=== PATIENT | male | born 1970 | race Caucasian/White ===

== ENCOUNTER 2020-03-19 21:56 | Emergency (ER) | payer OTHER ==
[~2020-03-19] VITALS: Ht 182.9 cm; Wt 104.3 kg
[2020-03-19 23:01] LABS: ABSOLUTE BASOPHILS 0.1 thou/uL (0.0-0.2); ABSOLUTE EOSINOPHILS 0.2 thou/uL (0.0-0.7); ABSOLUTE LYMPHOCYTES 0.9 thou/uL (0.8-5.3); ABSOLUTE MONOCYTES 0.8 thou/uL (0.0-1.2); ABSOLUTE NEUTROPHILS 4.6 thou/uL (1.6-8.1); BASOPHILS 1.2 %; EOSINOPHILS 2.5 %; HEMATOCRIT 44.4 % (42.0-52.0); HEMOGLOBIN 15.2 gm/dL (14.0-18.0); MCH 31.7 pg (26.0-34.0); MCHC 34.3 g/dL (28.0-37.0); MCV 92.3 fL (80.0-100.0); MONOCYTES 12.7 %; MPV 8.8 fl. (7.2-11.1); NUCLEATED RBCS 0 /100WBC; PLATELET COUNT* 256 thou/uL (150-400); POLYS 69.6 %; RBC 4.81 mil/uL (4.50-6.00); RDW-CV 13.5 % (10.5-14.5); WBC 6.6 thou/uL (4.0-11.0)
[2020-03-19 23:11] LABS: CALCIUM 8.4 mg/dL (8.5-10.1); CREATININE 1.3 mg/dL (0.6-1.3); POTASSIUM 3.6 mmol/L (3.5-5.1)
[2020-03-19 23:14] LABS: PROTIME 10.3 Seconds (9.20-11.50)
[2020-03-19 23:21] LABS: ALBUMIN 3.9 g/dL (3.4-5.0); MAGNESIUM 2.1 mg/dL (1.8-2.4); TOTAL BILIRUBIN 0.2 mg/dL (<0.1-1.0); TOTAL PROTEIN 7.2 g/dL (6.4-8.2)
[2020-03-20] MEDS ORDERED: AUGMENTIN 875-1 EACH PO (00:24)
[2020-03-20 02:14] VITALS: BP 126/76
--- NOTE | 2020-03-20 10:08 | EKG ---
[place] [address] ELECTROCARDIOGRAM REPORT Name: KEVEN ABDI Room: [facility]#: [id number] Admission: 03/19/20 Attend Phys: Discharge: 03/20/20 Date of : 70 Date of Service: 03/19/202200 Report #: [id number] THIS REPORT FOR: //name// [facility] ED Test Date: 2020-03-19 Test Time: 22:01:54 Pat Name: KEVEN ABDI Department: Room: Gender: Recreation Activities Coordinator: YAMILET : 1970 Requested By: Hortencia Lemon Order Number: [id number] MD: Asad Hoyos Measurements Intervals [place] Rate: 82 P: 59 IA: 144 QRS: 70 QRSD: 98 T: 32 QT: 352 QTc: 411 Interpretive Statements Sinus rhythm Abnormal R-wave progression, early transition No previous ECG available for comparison Electronically Signed On 03-20-2020 10:07:46 CDT by Asad Hoyos [email or web address] <ELECTRONICALLY SIGNED> By: Asad Hoyos MD, [facility] 03/20/20 1007 00 00 Asad Hoyos MD, [facility] /EPI
== END 2020-03-20 02:15 | disposition home or self-care (01) ==
LOC: M.ERS 21:56
PROVIDERS: Emergency Medicine
DX: J18.9 Pneumonia, unspecified organism (principal); Z20.828 Contact with and (suspected) exposure to other viral communicable diseases